=== PATIENT | male | born 1950 ===

== ENCOUNTER 2020-11-14 22:19 | Emergency (ER) | payer BC, MEDICARE ==
[2020-11-14] MEDS ORDERED: Lidocaine 1% with EPINEPHrine 1:200,000 30 ML SDV INJECT ONE (22:20)
--- NOTE | 2020-11-15 00:47 | ER ---
HISTORY OF PRESENT ILLNESS: A 70-year-old male here after getting a fishhook imbedded into the right fifth finger. He was out fishing this evening when this happened. They tried removing a little bit at home. He is on Eliquis, so he was bleeding quite a bit. They decided to come in to have it removed. The patient is taking Eliquis for DVT. He has been on it about 3 months. OBJECTIVE: GENERAL APPEARANCE: The patient is awake and alert. He is smiling and joking. VITAL SIGNS: Reviewed as listed. EXTREMITIES: Examining the right fifth finger reveals 1 hook of a treble hook is embedded into the palmar surface of the fifth finger just distal to the DIP joint. There is no bleeding at this time. Dz: Fish hook removal. TREATMENT PLAN: The site was swabbed with alcohol, after which I injected about 1 mL of 1% lidocaine without epi. Then using a string-yank method, I removed the hook in one attempt. The patient tolerated this well. He did bleed a few drops. I applied a gauze pressure dressing that he held in place for about 5 minutes and the site did not bleed after this. He stated that the hook was a new hook, it was not dirty or soiled. The patient will have a pressure dressing applied by nursing staff. He is to change the dressing once a day, more often if soiled. Try to keep the site clean for 3 to 4 days and monitor for any sign of infection. Followup is p.r.nCain BARKER/CHARLES /[id number] MICHELLE
== END 2020-11-14 22:58 | disposition home or self-care (01) ==
LOC: LB.ED 22:19
DX: S60.456A Superficial foreign body of right little finger, initial encounter (principal); W45.8XXA Other foreign body or object entering through skin, initial encounter
CPT/HCPCS: 99283